=== PATIENT | female | born 1955 | race Native Hawaiian/Other Pacific Islander ===

== ENCOUNTER 2016-07-11 18:30 | Emergency (ER) | payer OTHER ==
[2016-07-11] MEDS ORDERED: Tetanus/Diphtheria Toxoids 0.5 ml Syringe IM ONE (18:48)
[2016-07-11 19:10] VITALS: O2SAT 98; BMI 22.6
[2016-07-11 19:29] LABS: BASO % 0.9 % (0.0-2.0); EOS # 0.1 K/uL (0.0-0.7); EOS % 2.8 % (0.0-4.0); HEMATOCRIT 40.6 % (34.0-47.0); LYMPH # 1.9 K/uL (1.0-4.3); LYMPH % 36.9 % (20.0-40.0); MEAN CELL VOLUME 85.9 fL (81.0-99.0); MEAN CORPUSCULAR HEMOGLOBIN 28.5 pg (27.0-31.0); MEAN CORPUSCULAR HGB CONC 33.1 g/dL (33.0-37.0); MEAN PLATELET VOLUME 6.8 fL (7.2-11.7); MONO # 0.4 K/uL (0.0-0.8); MONO % 8.3 % (0.0-10.0); RED CELL DISTRIBUTION WIDTH 12.7 % (11.5-14.5)
[2016-07-11 19:37] LABS: CHLORIDE 100 mmol/L (98-107)
[2016-07-11 19:38] LABS: POTASSIUM 4.1 mmol/L (3.6-5.2); RBC URINE 7 /hpf (0-3); SODIUM 138 mmol/L (132-148); URINE BACTERIA RARE (<OCC); URINE BILIRUBIN NEGATIVE (NEGATIVE); URINE BLOOD 1+ (NEGATIVE); URINE COLOR Yellow (YELLOW); URINE GLUCOSE (UA) NORMAL (Normal); URINE KETONE NEGATIVE (NEGATIVE); URINE LEUKOCYTE ESTERASE NEG Leu/uL (Negative); URINE PROTEIN NEGATIVE (NEGATIVE); URINE UROBILINOGEN NORMAL mg/dL (0.2-1.0)
[2016-07-11 19:40] LABS: ALB/GLOB RATIO 1.4 (1.0-2.1); AMYLASE 109 U/L (30-110); BILIRUBIN,TOTAL 0.8 mg/dL (0.2-1.3); CARBON DIOXIDE 26 mmol/L (22-30); GFR AFRICAN-AMERICAN > 60; TOTAL PROTEIN 7.8 g/dL (6.3-8.3)
[2016-07-11 19:41] LABS: ALKALINE PHOSPHATASE 71 U/L (38-126); ALT/SGPT 47 U/L (9-52); AST/SGOT 31 U/L (14-36); BLOOD UREA NITROGEN 20 mg/dL (7-17); CALCIUM 9.2 mg/dl (8.6-10.4); GLUCOSE,RANDOM 124 mg/dL (65-105)
--- NOTE | 2016-07-11 20:11 | C.PDOC ---
History Of Present Illness 60 year old female, who is an employee of the hospital, presents to the ED with complaints of a needle stick. Patient states she was removing a line from a patient when she was accidentally stuck by the needle to her left 3rd finger. She has no other complaints at this time. Time Seen by Provider: 07/11/16 18:46 Chief Complaint (Nursing): Needle Stick History Per: Patient History/Exam Limitations: no limitations Onset/Duration Of Symptoms: Mins Current Symptoms Are (Timing): Still Present Severity: Mild Past Medical History Reviewed: Historical Data, Nursing Documentation, Vital Signs Vital Signs: Last Vital Signs Temp 98.2 F 07/11/16 20:39 Pulse 72 07/11/16 20:39 Resp 18 07/11/16 20:39 BP 129/75 07/11/16 20:39 Pulse Ox 98 07/11/16 20:39 - Medical History PMH: HTN, Hypercholesterolemia Family History: States: Unknown Family Hx - Social History Hx Alcohol Use: No Hx Substance Use: No - Immunization History Hx Tetanus Toxoid Vaccination: No Hx Influenza Vaccination: Yes Hx Pneumococcal Vaccination: No Review Of Systems Except As Marked, All Systems Reviewed And Found Negative. Constitutional: Negative for: Fever, Chills Skin: Positive for: Other (+needle stick to left 3rd finger) Physical Exam - Physical Exam Appears: Non-toxic, No Acute Distress Skin: Warm, Dry, Other (+ Puncture wound to the plantar aspect of the distal left 3rd finger) Head: Atraumatic, Normacephalic Eye(s): bilateral: Normal Inspection Oral Mucosa: Moist Neck: Supple Chest: Symmetrical Respiratory: No Accessory Muscle Use Extremity: Normal ROM, Capillary Refill (< 2 seconds), No Deformity Pulses: Left Radial: Normal, Right Radial: Normal Neurological/Psych: Oriented x3, Normal Speech, Normal Cognition, Normal Sensation ED Course And Treatment - Laboratory Results Result Diagrams: 07/11/16 19:25 07/11/16 19:25 O2 Sat by Pulse Oximetry: 98 (Room air) Pulse Ox Interpretation: Normal Progress Note: Blood work and Urinalysis ordered and reviewed. The patient which the line was in, resulted negative HIV. Patient was given Tetanus vaccine. Prophylaxis was offered however the patient refused medication and was advised to follow up with her PMD in 1-2 days. Disposition - Disposition Disposition: HOME/ ROUTINE Disposition Time: 20:20 Condition: STABLE Additional Instructions: Follow up with primary medical doctor in 1-3 days without fail for further evaluation. Return to the emergency department at any time if symptoms persist or worsen. Instructions: Needle Stick Injuries (ED) - Clinical Impression Clinical Impression: Needle stick injury - PA / A/C TECH / Resident Statement MD/DO has reviewed & agrees with the documentation as recorded. - Scribe Statement The provider has reviewed the documentation as recorded by the Scribe Neville Reed. All medical record entries made by the Scribe were at my direction and personally dictated by me. I have reviewed the chart and agree that the record accurately reflects my personal performance of the history, physical exam, medical decision making, and the department course for this patient. I have also personally directed, reviewed, and agree with the discharge instructions and disposition.
[2016-07-11 20:40] VITALS: BP 129/75; PULSE 72; RESP 18; TEMP 98.2
== END 2016-07-11 20:41 | disposition home or self-care (01) ==
LOC: C.ER 18:30
DX: S61.233A Puncture wound without foreign body of left middle finger without damage to nail, initial encounter (principal); W46.1XXA Contact with contaminated hypodermic needle, initial encounter; Y93.F9 Activity, other caregiving; Y92.230 Patient room in hospital as the place of occurrence of the external cause; Y99.0 Civilian activity done for income or pay

== ENCOUNTER 2017-12-11 18:31 | Emergency (ER) | payer OTHER ==
[2017-12-11 18:34] VITALS: BMI 22.3
[2017-12-11 18:37] VITALS: BP 172/78; PULSE 73; RESP 18; TEMP 96; O2SAT 99
--- NOTE | 2017-12-11 19:58 | C.PDOC ---
History Of Present Illness 62 year old female presents to the emergency department complaining of pain to her right wrist status post fall yesterday at work. She denies any weakness or numbness. Patient works here as CP in ER. Time Seen by Provider: 12/11/17 19:03 Chief Complaint (Nursing): Finger,Hand,&Wrist History Per: Patient History/Exam Limitations: no limitations Onset/Duration Of Symptoms: Days Current Symptoms Are (Timing): Still Present Past Medical History Reviewed: Historical Data, Nursing Documentation, Vital Signs Vital Signs: Last Vital Signs Temp 96 F L 12/11/17 18:34 Pulse 73 12/11/17 18:34 Resp 18 12/11/17 18:34 BP 172/78 H 12/11/17 18:34 Pulse Ox 99 12/11/17 21:36 - Medical History PMH: HTN, Hypercholesterolemia Denies: Chronic Kidney Disease Family History: States: No Known Family Hx - Social History Hx Alcohol Use: No Hx Substance Use: No - Immunization History Hx Tetanus Toxoid Vaccination: No Hx Influenza Vaccination: Yes Hx Pneumococcal Vaccination: No Review Of Systems Except As Marked, All Systems Reviewed And Found Negative. Constitutional: Negative for: Fever, Chills Cardiovascular: Negative for: Chest Pain Respiratory: Negative for: Shortness of Breath Gastrointestinal: Negative for: Nausea, Vomiting Musculoskeletal: Positive for: Other (Right wrist pain) Neurological: Negative for: Weakness, Numbness Physical Exam - Physical Exam Appears: Non-toxic, No Acute Distress Skin: Warm, Dry, No Rash Head: Atraumatic, Normacephalic Eye(s): bilateral: Normal Inspection Oral Mucosa: Moist Neck: Supple Extremity: Tenderness (mild tenderness to R wrist), Swelling (mild swelling to R wrist), No Other (No erythema of R wrist, in contrary to triage) Extremity: Right: Other (Full ROM of fingers) Pulses: Left Radial: Normal, Right Radial: Normal Neurological/Psych: Oriented x3, Normal Speech, Normal Cognition Gait: Steady ED Course And Treatment O2 Sat by Pulse Oximetry: 99 (RA) Pulse Ox Interpretation: Normal Progress Note: Right wrist x-ray ordered. Results of x-ray showed no fracture. A cockup wrist splint was applied to patient. Patient is referred to an orthopedist and instructed to follow up with clinic for further evaluation. Disposition - Disposition Referrals: Frankie Barillas III, MD [Staff Provider] - Disposition: HOME/ ROUTINE Disposition Time: 19:55 Condition: STABLE Additional Instructions: Follow up with Orthopedist within 2-3 days. Return to ED if feel worse. Prescriptions: Ibuprofen [Motrin Tab] 400 mg PO Q8 #30 tab Instructions: Wrist Sprain (DC) Forms: [facility] ([place]), Work Excuse - Clinical Impression Clinical Impression: Right wrist sprain - PA / SHOVE UP / Resident Statement MD/DO has reviewed & agrees with the documentation as recorded. - Scribe Statement The provider has reviewed the documentation as recorded by the Scribe All medical record entries made by the Scribe were at my direction and personally dictated by me. I have reviewed the chart and agree that the record accurately reflects my personal performance of the history, physical exam, medical decision making, and the department course for this patient. I have also personally directed, reviewed, and agree with the discharge instructions and disposition.
--- NOTE | 2017-12-12 11:01 | RAD ---
Right wrist four views History: Fall. Comparison: None available. Findings: Diffuse osteopenia. Productive change at the radial cortex of the distal radius, nonspecific. Degenerative changes noted at the 1st carpometacarpal joint space. Limited evaluation of the trapezium and trapezoid given suboptimal patient positioning and technique. Underlying osseous injury at this level cannot entirely be excluded. Clinical correlation. Impression: Diffuse osteopenia. Productive change at the radial cortex of the distal radius, nonspecific. Degenerative changes noted at the 1st carpometacarpal joint space. Limited evaluation of the trapezium and trapezoid given suboptimal patient positioning and technique. Underlying osseous injury at this level cannot entirely be excluded. Clinical correlation. If pain persists, consider correlation with CT.
== END 2017-12-11 20:04 | disposition home or self-care (01) ==
LOC: C.ER 18:31
DX: S63.501A Unspecified sprain of right wrist, initial encounter (principal); W19.XXXA Unspecified fall, initial encounter; Y92.89 Other specified places as the place of occurrence of the external cause; Y99.0 Civilian activity done for income or pay